=== PATIENT | male | born 1985 | race Caucasian/White ===

== ENCOUNTER 2022-10-30 21:40 | Inpatient (IN) | payer OTHER ==
[~2022-10-30] VITALS: Ht 167.6 cm; Wt 72.5 kg
[2022-10-30 22:46] LABS: BASOPHILS % (AUTO) 0.7 % (0.0-2.0); EOSINOPHILS % (AUTO) 2.2 % (1.0-6.0); HEMATOCRIT 46.1 % (41-53); HEMOGLOBIN 15.8 g/dL (13.5-17.5); LYMPHOCYTES # (AUTO) 2.1 K/uL (1.0-4.8); LYMPHOCYTES % (AUTO) 19.2 % (22.0-44.0); MEAN CORPUSCULAR HEMOGLOBIN 30.7 pg (26.0-34.0); MEAN CORPUSCULAR HGB CONC 34.3 G/dL (31.0-37.0); MEAN CORPUSCULAR VOLUME 89 fL (80-100); MONOCYTES # (AUTO) 0.8 K/uL (0.1-1.0); MONOCYTES % (AUTO) 7.2 % (2.0-9.0); NEUTROPHILS # (AUTO) 7.6 K/uL (1.8-7.7); NEUTROPHILS % (AUTO) 70.7 % (40.0-70.0); PLATELET COUNT (AUTO) 245 K/uL (150-450); RED BLOOD CELL COUNT(AUTO) 5.16 MIL/uL (4.50-5.90); RED CELL DISTRIBUTION WIDTH 12.9 % (11.5-14.5)
[2022-10-30 22:57] LABS: ANION GAP 9 mmol/L (8-16); CALCIUM, TOTAL 9.2 mg/dL (8.8-10.5); CARBON DIOXIDE 30 mmol/L (22-29); CHLORIDE 99 mmol/L (98-107); CREATININE 1.08 mg/dL (0.60-1.30); GLOMERULAR FILTR. RATE CALC > 60 mL/min (>60); GLUCOSE,RANDOM 158 mg/dL (70-110); POTASSIUM 3.6 mmol/L (3.5-5.1); SODIUM SERUM 138 mmol/L (136-145); UREA NITROGEN, BLOOD 16 mg/dL (7-18)
[2022-10-30 23:10] LABS: ALANINE AMINOTRANSFERASE 30 U/L (12-78); ALKALINE PHOSPHATASE 125 U/L (46-116); ASPARTATE AMINOTRANSFERASE 22 U/L (15-37); BILIRUBIN,TOTAL 0.3 mg/dL (0.1-1.0)
[2022-10-31] MEDS ORDERED: ASPIRIN 325 MG TABLET PO ONE
[2022-10-31] MEDS ORDERED: NITROGLYCERIN 2% (1 GM=INCH) OINTMENT PACKET TP ONE
[2022-10-31] MEDS ORDERED: ACETAMINOPHEN 325 MG TABLET PO PRN ×2 (03:00→20:00)
[2022-10-31] MEDS ORDERED: ONDANSETRON HCL 4 MG/2 ML VIAL IVP PRN ×2 (03:00→20:00)
[2022-10-31] MEDS ORDERED: 0.9% SODIUM CHLORIDE 10 ML SYRINGE IVP PRN (03:00)
[2022-10-31 05:49] LABS: COVID AG,FIA SOURCE NASAL SWAB
[2022-10-31 17:38] VITALS: BP 134/87
[2022-10-31] MEDS ORDERED: ALBUTEROL SULFATE 2.5 MG/0.5 ML NEB SOLUTION NEB PRN (20:00)
[2022-10-31] MEDS ORDERED: BISACODYL 10 MG RECTAL RECTAL SUPPOSITORY PR PRN (20:00)
[2022-10-31] MEDS ORDERED: ZOLPIDEM TARTRATE 5 MG TABLET PO PRN (20:00)
[2022-10-31] MEDS ORDERED: IPRATROPIUM BROMIDE 0.5 MG/2.5 ML NEB SOLUTION NEB PRN (20:00)
[2022-10-31] MEDS ORDERED: MAGNESIUM HYDROXIDE SUSPENSION 30 ML UDCUP PO PRN (20:00)
[2022-10-31 20:50] VITALS: BP 142/93
[2022-10-31 22:46] LABS: GLUCOMETER DEV NAME(LOC) 5S.2B; GLUCOSE,POINT OF CARE 184 MG/DL (70-110)
[2022-10-31] MEDS: HEPARIN SODIUM,PORCINE 5,000 UNITS/ML VIAL SQ SCH (23:45)
[2022-11-01 00:42] VITALS: BP 136/95
[2022-11-01] MEDS ORDERED: DEXTROSE 50%-WATER 25 GM/50 ML SYRINGE IVP PRN (02:30)
[2022-11-01 04:36] VITALS: BP 142/86
[2022-11-01] MEDS: INSULIN LISPRO 100 UNITS/ML SQ PRN ×3 (06:59→21:57)
[2022-11-01 07:11] LABS: GLUCOMETER DEV NAME(LOC) 5S.2B; GLUCOSE,POINT OF CARE 178 MG/DL (70-110)
[2022-11-01 07:48] VITALS: BP 139/84
[2022-11-01] MEDS: HEPARIN SODIUM,PORCINE 5,000 UNITS/ML VIAL SQ SCH ×2 (08:00→16:48)
[2022-11-01] MEDS ORDERED: PANTOPRAZOLE SODIUM 40 MG DR TABLET PO SCH (09:00)
[2022-11-01 11:10] VITALS: BP 137/80
[2022-11-01] MEDS ORDERED: SODIUM CHLORIDE 0.9% 100 ML ONE (11:38)
[2022-11-01] MEDS ORDERED: IOHEXOL 350 MG/ML 100 ML VIAL ONE (11:38)
[2022-11-01 15:51] VITALS: BP 133/86
[2022-11-01 20:41] VITALS: BP 140/88
[2022-11-01 22:17] LABS: GLUCOMETER DEV NAME(LOC) 5S.2B; GLUCOSE,POINT OF CARE 218 MG/DL (70-110)
[2022-11-01 22:18] LABS: GLUCOMETER DEV NAME(LOC) 5S.2B; GLUCOSE,POINT OF CARE 279 MG/DL (70-110)
[2022-11-01 22:18] LABS: GLUCOMETER DEV NAME(LOC) 5S.1B; GLUCOSE,POINT OF CARE 205 MG/DL (70-110)
== END 2022-11-01 22:30 | DRG 195 ==
LOC: EMS 21:45 → AHU 10-31 07:34 → UNDOADMIN 10-31 07:34 → 5S 10-31 17:00 → AHU 10-31 17:00 → 5S 10-31 17:13
PROVIDERS: ADMIT Hospitalist; ATTEND Hospitalist
DX: R09.1 Pleurisy (principal); E11.9 Type 2 diabetes mellitus without complications; I25.10 Atherosclerotic heart disease of native coronary artery without angina pectoris; Z20.822 Contact with and (suspected) exposure to COVID-19; Z79.4 Long term (current) use of insulin; Z79.899 Other long term (current) drug therapy
CPT/HCPCS: 71045; 71260; 80053; 82962; 84484; 85025; 93005; 93306; 99285; J1644; J7050; Q9967; 36415-L1; 36415-TC

== ENCOUNTER 2023-01-01 22:39 | Inpatient (IN) | payer OTHER ==
[~2023-01-01] VITALS: Ht 160 cm; Wt 75.0 kg
[2023-01-01 23:57] LABS: BASOPHILS % (AUTO) 0.7 % (0.0-2.0); EOSINOPHILS % (AUTO) 0.5 % (1.0-6.0); HEMATOCRIT 44.4 % (41-53); HEMOGLOBIN 15.9 g/dL (13.5-17.5); LYMPHOCYTES # (AUTO) 1.2 K/uL (1.0-4.8); LYMPHOCYTES % (AUTO) 11.2 % (22.0-44.0); MEAN CORPUSCULAR HEMOGLOBIN 30.9 pg (26.0-34.0); MEAN CORPUSCULAR HGB CONC 35.8 G/dL (31.0-37.0); MEAN CORPUSCULAR VOLUME 86 fL (80-100); MONOCYTES # (AUTO) 0.5 K/uL (0.1-1.0); MONOCYTES % (AUTO) 5.1 % (2.0-9.0); NEUTROPHILS # (AUTO) 8.6 K/uL (1.8-7.7); NEUTROPHILS % (AUTO) 82.5 % (40.0-70.0); PLATELET COUNT (AUTO) 268 K/uL (150-450); RED BLOOD CELL COUNT(AUTO) 5.14 MIL/uL (4.50-5.90); RED CELL DISTRIBUTION WIDTH 12.6 % (11.5-14.5)
[2023-01-02 00:08] LABS: ANION GAP 8 mmol/L (8-16); CARBON DIOXIDE 27 mmol/L (22-29); CHLORIDE 98 mmol/L (98-107); CREATININE 0.97 mg/dL (0.60-1.30); GLOMERULAR FILTR. RATE CALC > 60 mL/min (>60); GLUCOSE,RANDOM 333 mg/dL (70-110); POTASSIUM 3.9 mmol/L (3.5-5.1); SODIUM SERUM 133 mmol/L (136-145)
[2023-01-02 00:20] LABS: B-TYPE NATRIURETIC PEPTIDE 7 pg/mL (0-100)
[2023-01-02 00:33] LABS: ALANINE AMINOTRANSFERASE 23 U/L (12-78); ALBUMIN 3.9 g/dL (3.4-5.0); ALKALINE PHOSPHATASE 125 U/L (46-116); BILIRUBIN,TOTAL 0.3 mg/dL (0.1-1.0); CREATINE KINASE, TOTAL ONLY 99 U/L (39-308); TOTAL PROTEIN, SERUM 7.6 g/dL (6.4-8.2)
[2023-01-02] MEDS ORDERED: 0.9% SODIUM CHLORIDE 10 ML SYRINGE IVP PRN (00:45)
[2023-01-02] MEDS ORDERED: INSULIN REGULAR, HUMAN 100 UNITS/ML SQ ONE (00:45)
[2023-01-02] MEDS ORDERED: LISINOPRIL 10 MG TABLET PO ONE (00:45)
[2023-01-02] MEDS ORDERED: ONDANSETRON HCL 4 MG/2 ML VIAL IVP PRN ×2 (00:45→03:15)
[2023-01-02] MEDS ORDERED: ACETAMINOPHEN 325 MG TABLET PO PRN ×2 (00:45→03:15)
[2023-01-02] MEDS ORDERED: ASPIRIN 81 MG CHEWABLE TABLET PO ONE (00:45)
[2023-01-02 00:51] LABS: ASPARTATE AMINOTRANSFERASE 20 U/L (15-37)
[2023-01-02 00:58] LABS: APPEARANCE,URINE CLEAR (CLEAR); BILIRUBIN,URINE NEGATIVE (NEGATIVE); GLUCOSE, URINE (UA) >=1000 mg/dL (NEGATIVE); KETONES,URINE NEGATIVE (NEGATIVE); LEUKOCYTE ESTERASE ,URINE NEGATIVE (NEGATIVE); NITRATE,URINE NEGATIVE (NEGATIVE); OCCULT BLOOD,URINE NEGATIVE (NEGATIVE); PH,URINE 5.5 (5.0-8.0); PROTEIN,URINE NEGATIVE (NEGATIVE); SPECIFIC GRAVITIY, URINE 1.009 (1.003-1.030); UROBILINOGEN,URINE <=1.0 mg/dL (<=1.0)
[2023-01-02 01:06] LABS: AMPHET/METH SCREEN,URINE NEGATIVE (NEGATIVE); BARBITURATE SCREEN, URINE NEGATIVE (NEGATIVE); BENZODIAZEPINES SCREEN,URINE NEGATIVE (NEGATIVE); CANNABINOID SCREEN,URINE NEGATIVE (NEGATIVE); COCAINE SCREEN,URINE NEGATIVE (NEGATIVE); METHADONE SCREEN, URINE NEGATIVE (NEGATIVE); OPIATE SCREEN,URINE NEGATIVE (NEGATIVE); PHENCYCLIDINE SCREEN,URINE NEGATIVE (NEGATIVE)
[2023-01-02 01:13] LABS: BACTERIA,URINE None Seen /HPF (None Seen); RBC,URINE None Seen /HPF (0-2); SQUAMOUS EPITHELIAL CELL,UR Few /LPF (None Seen); WBC,URINE None Seen /HPF (0-5)
[2023-01-02] MEDS ORDERED: DEXTROSE 50%-WATER 25 GM/50 ML SYRINGE IVP PRN (03:15)
[2023-01-02] MEDS: INSULIN GLARGINE,HUM.REC.ANLOG 100 UNITS/ML SQ SCH ×2 (03:59→15:59)
[2023-01-02] MEDS ORDERED: NITROGLYCERIN 2% (1 GM=INCH) OINTMENT PACKET TP ONE (04:15)
[2023-01-02 10:08] VITALS: BP 124/75
[2023-01-02] MEDS: HEPARIN SODIUM,PORCINE 5,000 UNITS/ML VIAL SQ SCH ×2 (10:29→16:00)
[2023-01-02] MEDS: ASPIRIN 81 MG CHEWABLE TABLET PO SCH (10:30)
[2023-01-02 11:46] VITALS: BP 101/57
[2023-01-02] MEDS: INSULIN LISPRO 100 UNITS/ML SQ PRN ×3 (12:12→20:28)
[2023-01-02 15:19] VITALS: BP 119/68
[2023-01-02 19:30] VITALS: BP 109/64
[2023-01-02 20:41] LABS: GLUCOMETER DEV NAME(LOC) 5S.1B; GLUCOSE,POINT OF CARE 241 MG/DL (70-110)
[2023-01-02 20:41] LABS: GLUCOMETER DEV NAME(LOC) 5S.1B; GLUCOSE,POINT OF CARE 185 MG/DL (70-110)
[2023-01-02 23:18] VITALS: BP 114/64
[2023-01-03] MEDS: HEPARIN SODIUM,PORCINE 5,000 UNITS/ML VIAL SQ SCH ×3 (00:33→15:11)
[2023-01-03] MEDS: INSULIN GLARGINE,HUM.REC.ANLOG 100 UNITS/ML SQ SCH ×2 (02:45→15:13)
[2023-01-03 03:06] LABS: GLUCOMETER DEV NAME(LOC) 5S.2C; GLUCOSE,POINT OF CARE 151 MG/DL (70-110)
[2023-01-03 03:47] VITALS: BP 114/70
[2023-01-03 05:41] LABS: GLUCOMETER DEV NAME(LOC) 5N.2C; GLUCOSE,POINT OF CARE 292 MG/DL (70-110)
[2023-01-03] MEDS: INSULIN LISPRO 100 UNITS/ML SQ PRN ×4 (06:18→21:11)
[2023-01-03 06:46] LABS: BASOPHILS % (AUTO) 0.5 % (0.0-2.0); HEMOGLOBIN 16.2 g/dL (13.5-17.5); LYMPHOCYTES # (AUTO) 2.5 K/uL (1.0-4.8); LYMPHOCYTES % (AUTO) 32.4 % (22.0-44.0); MEAN CORPUSCULAR HEMOGLOBIN 30.8 pg (26.0-34.0); MEAN CORPUSCULAR HGB CONC 35.3 G/dL (31.0-37.0); MEAN CORPUSCULAR VOLUME 87 fL (80-100); MONOCYTES # (AUTO) 0.5 K/uL (0.1-1.0); NEUTROPHILS # (AUTO) 4.5 K/uL (1.8-7.7); NEUTROPHILS % (AUTO) 58.1 % (40.0-70.0); PLATELET COUNT (AUTO) 251 K/uL (150-450); RED BLOOD CELL COUNT(AUTO) 5.27 MIL/uL (4.50-5.90)
[2023-01-03 07:11] LABS: ALANINE AMINOTRANSFERASE 20 U/L (12-78); ALBUMIN 3.4 g/dL (3.4-5.0); ALKALINE PHOSPHATASE 84 U/L (46-116); ANION GAP 12 mmol/L (8-16); ASPARTATE AMINOTRANSFERASE 15 U/L (15-37); BILIRUBIN,TOTAL 0.4 mg/dL (0.1-1.0); CALCIUM, TOTAL 8.9 mg/dL (8.8-10.5); CARBON DIOXIDE 25 mmol/L (22-29); CHLORIDE 101 mmol/L (98-107); CREATININE 0.85 mg/dL (0.60-1.30); GLOMERULAR FILTR. RATE CALC > 60 mL/min (>60); GLUCOSE,RANDOM 147 mg/dL (70-110); POTASSIUM 3.6 mmol/L (3.5-5.1); SODIUM SERUM 138 mmol/L (136-145)
[2023-01-03 08:18] VITALS: BP 140/76
[2023-01-03] MEDS: ASPIRIN 81 MG CHEWABLE TABLET PO SCH (08:39)
[2023-01-03 09:51] LABS: GLUCOMETER DEV NAME(LOC) 5N.2C; GLUCOSE,POINT OF CARE 157 MG/DL (70-110)
[2023-01-03 12:00] VITALS: BP 110/71
[2023-01-03 15:44] VITALS: BP 140/67
[2023-01-03 19:41] LABS: GLUCOMETER DEV NAME(LOC) 5N.2C; GLUCOSE,POINT OF CARE 123 MG/DL (70-110)
[2023-01-04] MEDS: INSULIN GLARGINE,HUM.REC.ANLOG 100 UNITS/ML SQ SCH (02:52)
[2023-01-04] MEDS: HEPARIN SODIUM,PORCINE 5,000 UNITS/ML VIAL SQ SCH ×2 (02:53→07:50)
[2023-01-04 03:16] LABS: GLUCOMETER DEV NAME(LOC) 5N.2C; GLUCOSE,POINT OF CARE 195 MG/DL (70-110)
[2023-01-04 06:11] LABS: GLUCOMETER DEV NAME(LOC) 5S.1B; GLUCOSE,POINT OF CARE 162 MG/DL (70-110)
[2023-01-04 06:12] LABS: GLUCOMETER DEV NAME(LOC) 5S.1B; GLUCOSE,POINT OF CARE 251 MG/DL (70-110)
[2023-01-04] MEDS: INSULIN LISPRO 100 UNITS/ML SQ PRN (06:14)
[2023-01-04 07:11] VITALS: BP 108/52
[2023-01-04] MEDS: ASPIRIN 81 MG CHEWABLE TABLET PO SCH (07:50)
[2023-01-04] MEDS ORDERED: INSLAN SQ (08:06)
[2023-01-04] MEDS ORDERED: INSU100V SQ (08:12)
[2023-01-04 11:16] LABS: GLUCOMETER DEV NAME(LOC) 5S.1B; GLUCOSE,POINT OF CARE 226 MG/DL (70-110)
== END 2023-01-04 09:15 | DRG 315 ==
LOC: EMS 22:40 → 5S 01-02 06:16
PROVIDERS: ADMIT Internal Medicine; ATTEND Internal Medicine
DX: I5A Non-ischemic myocardial injury (non-traumatic) (principal); E87.1 Hypo-osmolality and hyponatremia; R07.9 Chest pain, unspecified; E11.65 Type 2 diabetes mellitus with hyperglycemia; I10 Essential (primary) hypertension; Z79.4 Long term (current) use of insulin
CPT/HCPCS: 71045; 80053; 80307; 81001; 82550; 82962; 83880; 84484; 85025; 93005; 93306; 99285; J1644; J1815; 36415-L1; 36415-TC